=== PATIENT | male | born 1970 | race Hispanic/Latino ===

== ENCOUNTER 2019-04-07 21:07 | Inpatient (IN) | payer SELFPAY ==
[~2019-04-07] VITALS: Ht 172.7 cm; Wt 85.4 kg
[2019-04-07 23:35] VITALS: BP_SYST 110; BP_SYST 139; BP_DIAS 70; BP_DIAS 91
[2019-04-08] MEDS ORDERED: ENAL10TA PO (00:31)
[2019-04-08] MEDS ORDERED: MORPHINE SULFATE 2 MG/ML 1ML SYG ONE (01:21)
[2019-04-08 03:25] VITALS: BP 145/99
[2019-04-08] MEDS ORDERED: MORPHINE SULFATE 2 MG/ML 1ML SYG IVP PRN (05:45)
[2019-04-08] MEDS ORDERED: CEFAZOLIN SODIUM 1 GM VIAL IVP SCH (06:00)
[2019-04-08 08:09] VITALS: BP 145/81
== END 2019-04-08 13:29 | disposition left against medical advice (07) | DRG 914 ==
LOC: OBSVTOIN 23:21 → 4AH 23:21
PROVIDERS: ADMIT Surgery Plastic and Reconstructive Surgery; ATTEND Surgery Plastic and Reconstructive Surgery
DX: S68.012A Complete traumatic metacarpophalangeal amputation of left thumb, initial encounter (principal); W31.2XXA Contact with powered woodworking and forming machines, initial encounter; Y93.89 Activity, other specified; Y92.89 Other specified places as the place of occurrence of the external cause; Y99.8 Other external cause status
CPT/HCPCS: 82948; G0378; J0690